=== PATIENT | male | born 1995 | race African-American/Black ===

== ENCOUNTER 2018-09-03 08:29 | Emergency (ER) | payer SELFPAY ==
--- NOTE | 2018-09-03 09:58 | RAD ---
Exam:3 views left HISTORY: Left ankle pain, x5 days COMPARISON: 10/29/2006 FINDINGS: Lisfranc alignment is maintained. Joint spaces are preserved. No fracture Probable chronic changes involving the distal medial tibia at the level of syndesmosis. Dedicated ank le radiographs if clinically warranted. IMPRESSION: 1. No acute abnormality 2. Presumed chronic changes along the distal tibia, the level of syndesmosis. Dedicated ankle radiograph series if clinically warranted
--- NOTE | 2018-09-03 10:05 | RAD ---
THREE VIEWS LEFT ANKLE: COMPARISON: 01/25/15. HISTORY: Left ankle pain for 5 days. FINDINGS: Three views of the left ankle show no evidence of acute fracture or dislocation. No degenerative alice nges are seen. Mild lateral soft tissue swelling is seen. IMPRESSION: No evidence of acute osseous abnormality. POS: [facility]
[2018-09-03] MEDS ORDERED: Ketorolac Tromethamine 60 MG/2 ML VIAL ONE (10:52)
== END 2018-09-03 11:07 | disposition home or self-care (01) ==
LOC: ERS 08:29
DX: M25.572 Pain in left ankle and joints of left foot (principal)
CPT/HCPCS: 96372; J1885

== ENCOUNTER 2019-11-07 06:53 | Emergency (ER) | payer SELFPAY | END 2019-11-07 07:43 | disposition home or self-care (01) | LOC: ERS 06:53 | DX: A59.9 Trichomoniasis, unspecified (principal) | CPT/HCPCS: 99283 ==

== ENCOUNTER 2021-12-18 18:32 | Emergency (ER) | payer OTHER, SELFPAY ==
[2021-12-18] MEDS ORDERED: Lidocaine 1% PF 5 ML VIAL ONE (18:43)
== END 2021-12-18 19:10 | disposition home or self-care (01) ==
LOC: ERS 18:32
DX: S61.210A Laceration without foreign body of right index finger without damage to nail, initial encounter (principal); W26.8XXA Contact with other sharp object(s), not elsewhere classified, initial encounter
CPT/HCPCS: 12001

== ENCOUNTER 2022-08-04 14:29 | Emergency (ER) | payer BC, SELFPAY ==
[2022-08-04] MEDS ORDERED: Ibuprofen 200 MG TAB ONE (14:48)
== END 2022-08-04 15:23 | disposition home or self-care (01) ==
LOC: ERS 14:29
DX: M72.2 Plantar fascial fibromatosis (principal); M77.32 Calcaneal spur, left foot; F17.210 Nicotine dependence, cigarettes, uncomplicated